=== PATIENT | female | born 1970 | race Two or more races ===

== ENCOUNTER 2016-10-05 10:30 | Emergency (ER) | payer OTHER ==
[~2016-10-05] VITALS: Ht 165.1 cm; Wt 51.3 kg
[~2016-10-05 10:30] MED LIST: PEPCID20 MG ORAL; ZOFRAN ODT4 MG ORAL
[2016-10-05] MEDS ORDERED: MULTIVITAMINS1 EA14 PO (10:43)
[2016-10-05 10:47] VITALS: BP 108/66
--- NOTE | 2016-10-05 11:01 | Emergency Room Report ---
History of Present Illness General Chief Complaint: Animal Bite Source: Patient Present Illness HPI Patient presents with complaint of severe itching, mild swelling and irritation at multiple sites, her right forearm and chin, neck. States she slipped over a friend's place yesterday and that the itching started and the next morning. She alos complains of watery diarrhea with some cramping. No dysuria, no blood or mucus or fevers or chills reported. No recent travel to foreign countries and as far she knows no sick contacts. Allergies: Coded Allergies: Wheat (Verified Allergy, Unknown, 10/05/16) Patient History Past Medical History: see triage record Social History: Denies: drug use, smoking Last Menstrual Period: 08/27/2016 Now: No : 0 Para: 0 Immunizations: UTD Reviewed Nursing Documentation: PMH: Agreed Nursing Documentation-PMH Past Medical History: No Stated History Review of Systems Constitutional: Denies: fever, malaise, sweats Gastrointestinal: Reports: diarrhea, Denies: abdominal pain, constipation, hematemesis, melena, nausea, vomiting Skin: Reports: rash All Other Systems: negative except mentioned in HPI Physical Exam Vital Signs Date Time Temp Pulse Resp B/P Pulse Ox O2 Delivery O2 Flow Rate FiO2 10/05/16 10:35 98.6 69 16 108/66 100 Room Air Sp02 EP Interpretation: reviewed, normal General Appearance: normal inspection, well appearing, no apparent distress, alert Head: atraumatic Eyes: bilateral eye normal inspection ENT: normal ENT inspection, hearing grossly normal, normal voice Neck: normal inspection, full range of motion, supple, no bony tend Respiratory: normal inspection, lungs clear, normal breath sounds, no respiratory distress, no retraction, no wheezing Cardiovascular #1: regular rate, rhythm, no edema Gastrointestinal: normal bowel sounds, non tender, soft, no guarding, no hernia Genitourinary: no CVA tenderness Musculoskeletal: normal inspection, back normal, normal range of motion Neurologic: normal inspection, alert, responsive, speech normal Psychiatric: normal inspection, judgement/insight normal, mood/affect normal Skin: rash - 4 discrete areas of redness and induration with no pinpoint, fluctuance, but redness with blanching. Very itching, on the chin, right side of the neck and right forearm Medical Decision Making Diagnostic Impression: Primary Impression: Insect bite Additional Impression: Diarrhea ER Course Patient is likely suffering from an insect bite with histamine response. No sign of infection. Her diarrhea sounds like watery and possibly of viral enteritis. No fevers no chills no flank pain no dysuria. We will do a urine studies to determine if there is any sign of UTI and she states she's had these in the past. Otherwise the patient should be discharged with Imodium, Benadryl and creams. urinalysis is negative, overall patient appears quite well and will be harged with medications as stated above Laboratory Tests Test 10/05/16 11:00 Urine Color Yellow Urine Appearance Clear Urine pH 5 (4.5-8.0) Urine Specific [place] 1.025 (1.005-1.035) Urine Protein Negative (NEGATIVE) Urine Glucose (UA) Negative (NEGATIVE) Urine Ketones Negative (NEGATIVE) Urine Occult Blood 4+ (NEGATIVE) H Urine Nitrite Negative (NEGATIVE) Urine Bilirubin Negative (NEGATIVE) Urine Urobilinogen Normal MG/DL (0.0-1.0) Urine Leukocyte Esterase 1+ (NEGATIVE) H Urine RBC 2-4 /HPF (0 - 2) H Urine WBC 0-2 /HPF (0 - 2) Urine Squamous Epithelial Cells Few /LPF (NONE/OCC) Urine Bacteria Few /HPF (NONE) Urine Mucus Few /LPF (NONE/OCC) H Last Vital Signs Date Time Temp Pulse Resp B/P Pulse Ox O2 Delivery O2 Flow Rate FiO2 10/05/16 10:47 98.6 75 16 108/66 100 Room Air Disposition: HOME, SELF-CARE Condition: Stable Scripts Hydrocortisone/Aloe Vera 1%* (HYDROCORTISONE-ALOE 1% CREAM*) Y Cr 1 APPLIC TOPIC Q6H Y for Itching, #30 GM Prov: Adrian Kearney MD 10/05/16 Loperamide Hcl/Simethicone (IMODIUM MULTI-SYMPTOM REL CPLT) 1 Each Tablet 1 EACH PO EVERY 6 HOURS for Diarrhea for 7 Days, #30 TAB Prov: Adrian Kearney MD 10/05/16 Diphenhydramine HCl (Benadryl) 25 Mg Capsule 25 MG PO EVERY 6 HOURS for 7 Days, #30 CAP Prov: Adrian Kearney MD 10/05/16 Adrian Kearney MD Oct 05, 2016 11:01
[2016-10-05 11:15] LABS: APPEARANCE,URINE CLEAR; KETONES,URINE NEGATIVE (NEGATIVE); LEUKOCYTE ESTERASE ,URINE 1+ (NEGATIVE); NITRITE,URINE NEGATIVE (NEGATIVE); PH,URINE 5 (4.5-8.0); PROTEIN,URINE NEGATIVE (NEGATIVE); UROBILINOGEN,URINE NORMAL MG/DL (0.0-1.0)
[2016-10-05 11:25] LABS: BACTERIA,URINE FEW /HPF; MUCUS,URINE FEW /LPF (NONE/OCC); SQUAMOUS EPITHELIAL CELL,UR FEW /LPF (NONE/OCC); WBC,URINE 0-2 /HPF (0 - 2)
[2016-10-05] MEDS ORDERED: HYDROCORTISONE-30 GM TOPIC (11:29)
[2016-10-05] MEDS ORDERED: IMODIUM MULTI-1 EACH PO (11:29)
[2016-10-05] MEDS ORDERED: BENADRYL25 M3 PO (11:29)
[2016-10-05 11:46] VITALS: BP 110/67
[2016-10-05 11:48] VITALS: BP 110/67
== END 2016-10-05 11:50 | disposition home or self-care (01) ==
LOC: EMR 11:07
DX: S50.861A Insect bite (nonvenomous) of right forearm, initial encounter (principal); S00.86XA Insect bite (nonvenomous) of other part of head, initial encounter; S10.96XA Insect bite of unspecified part of neck, initial encounter; W57.XXXA Bitten or stung by nonvenomous insect and other nonvenomous arthropods, initial encounter; Y92.009 Unspecified place in unspecified non-institutional (private) residence as the place of occurrence of the external cause; Y99.8 Other external cause status; R19.7 Diarrhea, unspecified; Z91.018 Allergy to other foods
CPT/HCPCS: 81003; 99282